=== PATIENT | male | born 1955 | race Caucasian/White ===

== ENCOUNTER 2019-03-06 22:36 | Observation (INO) ==
--- NOTE | 2019-03-06 23:29 | Emergency Department Note ---
Disposition Clinical Impression: Chest pain Qualifiers: Chest pain type: unspecified Qualified Code(s): R07.9 - Chest pain, unspecified Disposition: Admitted As Inpatient Condition: Fair Referrals: Layo Dumont [Primary Care Provider] - Forms: ED Satisfaction Letter Time of Disposition: 00:35 Chest Pain HPI - General Chief Complaint: ED Chest Pain Stated Complaint: CP/HEART PALPITATIONS/HIGH BP/INDIGESTION/[place] Time Seen by Provider: 03/06/19 23:04 Vital Signs Reviewed: Yes Nursing Notes Reviewed: Yes - History of Present Illness HPI Narrative: Patient to the ED with a chief complaint of chest pain. Patient states he woke up from sleep around 9:30. He felt a fullness in the left side of his jaw and ear. His ear was ringing. He felt pressure in his chest like indigestion. His heart rate went up. He felt a feeling of impending doom. He feels much better at this time. No cardiac history. Last stress test was in the early 1999. He does have a family history of heart disease and he has hypertension. Patient states he went to bed early tonight, but this is normal for him. He ate a normal dinner of a hamburger and some vegetables. Severity scale (1-10): 5 - Related Data Allergies Allergy/AdvReac Type Severity Reaction Status Date / Time No Known Allergies Allergy Unverified 12/12/15 09:26 All systems ED: reviewed and negative except as stated. Constitutional: Denies: fever Cardiovascular: Reports: chest pain, palpitations Respiratory: Denies: cough, dyspnea Chest Pain PMH - Past Medical History Medical history: Reports: hypertension, other (Alpha-1 antitrypsin deficiency) - Social History Smoking Status: Never smoker Father Family Medical History Unknown: Yes (Father with coronary disease.) Physical Exam Patient awake and alert sitting up in bed in no acute distress. His exam is unremarkable. - General Limitations: no limitations - Head Head exam: atraumatic, normocephalic, normal inspection - Eye Eye exam: Present: normal appearance - ENT ENT exam: normal exam, mucous membranes moist, TM's normal bilaterally - Neck Neck exam: Present: normal inspection - Chest Chest inspection: Present: normal inspection - Respiratory Respiratory exam: Present: normal lung sounds bilaterally. Absent: respiratory distress, wheezes - Cardiovascular Cardiovascular exam: Present: regular rate, normal rhythm - Abdominal Exam Abdominal exam: Present: soft, Non-Tender - Neurological Exam Neurological exam: Present: alert, oriented X3, CN II-XII intact - Psychiatric Psychiatric exam: Present: normal affect - Skin Skin exam: Present: warm, dry Course - Reevaluation(s) Reevaluation #1: Patient is in no acute distress. Cardiac workup. Time: 23:30 Reevaluation #2: The patient is feeling much better at this time. His troponin is negative. He does have some EKG changes including some inferior T-wave inversions. Heart score is 4. We will admit. Time: 00:34 - Consultations Consultation #1: Dr Montiel accepts Time: 00:49 Vital Signs Temperature 98.5 F 03/06/19 22:45 Pulse Rate 63 03/06/19 22:45 Respiratory Rate 16 03/06/19 22:45 Blood Pressure 175/103 03/06/19 22:45 O2 Sat by Pulse Oximetry 98 03/06/19 22:45 Temperature 98.5 F 03/06/19 23:26 Pulse Rate 63 03/06/19 23:26 Respiratory Rate 16 03/06/19 23:26 Blood Pressure 175/103 03/06/19 23:26 O2 Sat by Pulse Oximetry 98 03/06/19 23:26 Oxygen Delivery Oxygen Delivery Room Air Chest Pain - Lab Data Lab results reviewed: Yes I reviewed the patient's lab results. Result diagrams: 03/06/19 23:20 03/06/19 23:20 Lab Results 03/06/19 03/06/19 03/06/19 Range/Units 23:20 23:20 23:20 WBC 7.8 (4.3-11.1) K/mcL RBC 5.52 H (4.19-5.50) M/mcL Hgb 16.2 (12.9-16.9) g/dL Hct 49.1 (37.5-50.1) % MCV 88.9 (83.0-100.0) fL MCH 29.3 (28.0-33.3) pg MCHC 33.0 (31.6-35.5) g/dL RDW 12.7 (11.5-14.5) % Plt Count 233 (140-400) K/mcL MPV 10.1 (9.4-12.4) fL Immature Gran % 0.1 (0-4) % Seg Neutrophils % 72.0 % Lymphocytes % 17.1 % Monocytes % 5.9 % Eosinophils % 4.5 % Basophils % 0.4 % Neutrophils # 5.6 (1.6-8.9) K/mcL Lymphocytes # 1.3 (0.6-4.6) K/mcL Monocytes # 0.5 (0.0-1.3) K/mcL Eosinophils # 0.4 (0.0-0.6) K/mcL Basophils # 0.0 (0.0-0.2) K/mcL Sodium 138 (136-145) mEq/L Potassium 4.0 (3.5-5.1) mEq/L Chloride 102 (98-107) mEq/L Carbon Dioxide 30 H (23-29) mEq/L BUN 17 (8-23) mg/dL Creatinine 1.15 (0.70-1.30) mg/dL Est GFR ( Amer) > 60 (> 60) Est GFR (Non-Af Amer) > 60 (> 60) BUN/Creatinine Ratio 15 (6-26) Glucose 105 (70-105) mg/dL Calculated Osmolality 288 (280-300) Calcium 9.2 (8.6-10.3) mg/dL Troponin I < 0.03 (< 0.04) ng/mL B-Natriuretic Peptide 40 (Less than 100) pg/mL - Radiology Data Radiology results reviewed: Yes I reviewed the patient's radiology results. Chest X-Ray 03/06/19 23:17 IMPRESSION: No acute process. D/ / Kasandra Carlson MD / Kasandra Carlson MD Interpreting Provider: Kasandra Carlson MD - EKG Data EKG attestation: Yes I reviewed and interpreted this EKG. EKG results narrative: Normal sinus at 60. Normal QRS. Normal ST segments. T wave inversions in 3 and aVF. Normal axis. Heart Score - Score History: Moderately Suspicious EKG: Non Specific repolarisation Disturbance Age: 45-65 Risk Factors: 1-2 risk factors Troponin: Less than normal limit HEART Score Total: 4 Critical Care Time Critical Care Time: No
[2019-03-06 23:42] LABS: Basophils % 0.4 %; Eosinophils # 0.4 K/mcL (0.0-0.6); Eosinophils % 4.5 %; Hematocrit 49.1 % (37.5-50.1); Hemoglobin 16.2 g/dL (12.9-16.9); Immature Granulocytes % 0.1 % (0-4); Lymphocytes # 1.3 K/mcL (0.6-4.6); Lymphocytes % 17.1 %; Mean Corpuscular Hemoglobin 29.3 pg (28.0-33.3); Mean Corpuscular Volume 88.9 fL (83.0-100.0); Mean Platelet Volume 10.1 fL (9.4-12.4); Monocytes # 0.5 K/mcL (0.0-1.3); Monocytes % 5.9 %; Neutrophils # 5.6 K/mcL (1.6-8.9); Platelet Count 233 K/mcL (140-400); Red Blood Count 5.52 M/mcL (4.19-5.50); Red Cell Distribution Width 12.7 % (11.5-14.5); White Blood Count 7.8 K/mcL (4.3-11.1)
[2019-03-07 00:05] LABS: BUN/Creatinine Ratio 15 (6-26); Blood Urea Nitrogen 17 mg/dL (8-23); Calcium 9.2 mg/dL (8.6-10.3); Carbon Dioxide 30 mEq/L (23-29); Chloride 102 mEq/L (98-107); Glucose 105 mg/dL (70-105); Osmolality,Calculated 288 (280-300); Sodium 138 mEq/L (136-145); eGFR For African Americans > 60 (> 60); eGFR For Non-African Americans > 60 (> 60)
[2019-03-07 00:06] LABS: Troponin I < 0.03 ng/mL (< 0.04)
[2019-03-07] MEDS ORDERED: Aspirin 325 MG TABLET PO ONE (00:35)
[2019-03-07] MEDS ORDERED: Naloxone 0.4 MG/ML INJ IVP PRN (03:16)
[2019-03-07] MEDS ORDERED: Acetaminophen 325 MG TABLET PO PRN (03:16)
[2019-03-07] MEDS ORDERED: Ondansetron 4 MG/2 ML VIAL IVP PRN (03:16)
[2019-03-07] MEDS ORDERED: Nitroglycerin 0.4 MG TAB.SUBL SL PRN (03:18)
[2019-03-07] MEDS ORDERED: Morphine Sulfate 2 MG/ML SYRINGE IVP PRN (03:18)
[2019-03-07] MEDS ORDERED: 0.9 % Sodium Chloride 1,000 ML IVC SCH (03:30)
--- NOTE | 2019-03-07 05:20 | Internal Med History&Physical ---
Date of Encounter: 03/07/19 Time of Encounter: 02:35 Internal Medicine - H&P: HPI Chief complaint: chest pain Admitted From: Emergency Dept Plans for Post Hospital Care: Home History of present illness: Mr. Dela Cruz is a 64 year old male who awoke from sleep at 9:30 PM with sudden onset of chest pain, pressure, dyspnea, diaphoresis, and "sense of impending doom." He came to ER for evaluation where his pain had subsided over the timeframe. Roughly 2 hours had elapsed before he was seen by physician and initial symptom onset. He has slow resolution of chest pain. He did not require nitroglycerin or morphine in the ER. He received an aspirin and was stabilized. He was therefore admitted to hospitalist service. Upon my assessment of the patient, patient is back to baseline and feels chest pain-free. He and his confirmed above history. He felt that it was indigestion, but his convinced him to come to the ER. He is an avid bicyclist and rides his bicycle roughly 15-20 miles at least 3 times per week. He has no history of heart disease and only suffers from hypertension. He also has a history of alpha-1 antitrypsin deficiency, diagnosed recently. He has no respiratory or hepatic complications thus far. He is a nonsmoker and does not drink alcohol. His cardiac risk factors are low. However, given his presenting symptoms, he warrants further cardiac workup. His last stress test was roughly 15 years ago and that was negative. Past Med Surg Social Fam HX - Past Medical History Attestation: Yes The following information was validated with the patient. Source: patient, obtained from family Medical history: hypertension, other (alpha 1 antitrypsin deficiency) Additional medical history: BPH. chronic back pain Psychiatric history: no psych history - Past Surgical History Surgical History: sinus surgery, tonsillectomy Additional surgical history: B/L CT. L ankle. L hand. Back Surgery X 4. sleep apnea surgery - Social History Smoking Status: Never smoker Smokeless Tobacco Status: No Alcohol use: none Drug use: none Current living situation: Home, With Family Activity Level: Very active Recent Out of Country Travel Within the Last 8 Weeks: No - Family History Father History Unknown: Yes Internal Medicine - H&P: Meds Cialis 5 mg PO DAILY 03/07/19 [History] Meloxicam 15 mg PO DAILY 03/07/19 [History] Synthroid 75 mcg PO DAILY 03/07/19 [History] Tamsulosin HCl 0.4 mg PO DAILY 03/07/19 [History] amLODIPine 5 mg PO DAILY 03/07/19 [History] Allergy/AdvReac Type Severity Reaction Status Date / Time No Known Allergies Allergy Unverified 12/12/15 09:26 - Constitutional Constitutional: no chills, no fever(s), no night sweats - EENT Eyes: no blurry vision, no change in vision Ears: no ear pain, no tinnitus Nose, mouth and throat: no nasal congestion, no sinus pressure, no sore throat - Cardiovascular Cardiovascular ROS IM: chest pain, diaphoresis, dyspnea, no orthopnea, no paroxysmal nocturnal dyspnea, no syncope - Respiratory Respiratory: no cough, no chest congestion, no excessive phlegm production - Gastrointestinal Gastrointestinal: heartburn, nausea, no abdominal pain, no diarrhea, no hematemesis, no hematochezia, no melena, no vomiting - Genitourinary Genitourinary ROS male: no dysuria, no flank pain, no hematuria - Musculoskeletal Musculoskeletal ROS IM: no arthralgias, no back pain - Integumentary Integumentary IM: no rash, no jaundice - Neurological Neurological ROS: no dizziness, no focal weakness, no frequent falls, no headache(s) - Psychiatric Psychiatric: no anxiety, no depression - Endocrine Endocrine IM: no cold intolerance, no heat intolerance, no polydipsia, no polyphagia, no polyuria - Allergic/Immunologic Allergic/Immunologic: no wheezing, no GI upset with certain foods - Constitutional Vitals: Temp Pulse Resp BP Pulse Ox 97.5 F L 63 20 140/95 94 03/07/19 03:30 03/07/19 03:30 03/07/19 03:30 03/07/19 03:30 03/07/19 03:30 General appearance: Present: cooperative, A&O X 3, pleasant, no acute distress, answers questions appropriately Exam: chest pain free now - Head Head exam: Present: atraumatic, normal inspection - Eye Eye exam: Present: EOMI, PERRL. Absent: scleral icterus Pupils: Present: normal accommodation - ENT ENT exam: Present: mucous membranes dry, normal exam, normal oropharynx - Neck Neck exam general surgery: Present: full ROM, supple, trachea midline. Absent: lymphadenopathy, tenderness, nuchal rigidity, thyromegaly - Respiratory Respiratory exam: Present: CTAB. Absent: chest wall tenderness, rales, rhonchi, wheezes - Cardiovascular Cardiovascular exam: Present: RRR, +S1, +S2. Absent: diastolic murmur, systolic murmur - GI/Abdominal GI/Abdominal exam: Present: normal bowel sounds, soft. Absent: guarding, he patomegaly, mass, rebound, splenomegaly, tenderness - Extremities Exam Extremities exam: Present: full ROM, normal capillary refill, warm, radial pulses palpable and symmetrical. Absent: calf tenderness, pedal edema, tenderness - Back Exam Back exam: Present: normal inspection. Absent: CVA tenderness (L), CVA tenderness (R) - Neurological Exam Neurological exam: Present: alert, CN II-XII intact, oriented X3, no focal deficits, strengths equal and symetr throughout - Psychiatric Psychiatric exam: Present: normal affect, normal mood - Skin Skin exam: Present: dry, intact, warm Internal Med - H&P Results - Labs CBC & Chem 7: 03/06/19 23:20 03/06/19 23:20 Labs: Short CBC 03/06/19 Range/Units 23:20 WBC 7.8 (4.3-11.1) K/mcL Hgb 16.2 (12.9-16.9) g/dL Hct 49.1 (37.5-50.1) % Plt Count 233 (140-400) K/mcL Neutrophils # 5.6 (1.6-8.9) K/mcL BMP 03/06/19 23:20 Sodium 138 Potassium 4.0 Chloride 102 Carbon Dioxide 30 H BUN 17 Creatinine 1.15 Glucose 105 Calcium 9.2 Cardiac Enzymes 03/06/19 Range/Units 23:20 Troponin I < 0.03 (< 0.04) ng/mL - EKG Data -: EKG Interpreted by Myself EKG shows normal: sinus rhythm - EKG Data Prior EKG available for review: no EKG comments: 03/07/19 05:23 NSR; no acute ST-T changes - Impressions ITS Impressions Chest X-Ray 03/06/19 23:17 IMPRESSION: No acute process. D/ / Kasandra Carlson MD / Kasandra Carlson MD Interpreting Provider: Kasandra Carlson MD - Diagnostic Studies Chest x-ray Status: image reviewed by me (negative) - Assessment and Plan (1) Chest pain Current Visit: Yes Status: Acute Assessment and plan: 1. Will trend troponins, EKG's, and monitor on telemetry. 2. ECHO and stress test in AM if work-up remains negative. 3. Low suspicion of CAD but agree with work-up given presenting symptoms. 4. If above negative, will need GI work-up as outpatient. Qualifiers: Chest pain type: precordial pain Qualified Code(s): R07.2 - Precordial pain (2) Hypertension Current Visit: Yes Status: Chronic Assessment and plan: 1. Monitor BP and resume home meds as appropriate. Qualifiers: Hypertension type: essential hypertension Qualified Code(s): I10 - Essential (primary) hypertension (3) DVT prophylaxis Current Visit: Yes Status: Acute Assessment and plan: 1. Heparin SQ.
[2019-03-07 05:21] LABS: Prothrombin Time 11.5 Seconds (9.4-12.1)
[2019-03-07 05:23] LABS: Activated Partial Thrombo Time 29.6 Seconds (26.0-36.0)
[2019-03-07 05:37] LABS: Alanine Aminotransferase 22 Units/L (7-52); Albumin 4.3 g/dL (3.5-5.7); Albumin/Globulin Ratio 2.7 (1.1-2.2); Alkaline Phosphatase 43 Units/L (34-104); Aspartate Amino Transferase 20 Units/L (13-39); BUN/Creatinine Ratio 13 (6-26); Bilirubin,Total 0.5 mg/dL (0.3-1.0); Blood Urea Nitrogen 16 mg/dL (8-23); Calcium 8.9 mg/dL (8.6-10.3); Carbon Dioxide 30 mEq/L (23-29); Chloride 103 mEq/L (98-107); Chol/HDL Ratio 2.5 (0-4.9); Cholesterol 146 mg/dL (< 200); Globulin 1.6 g/dL (2.4-3.5); Glucose 95 mg/dL (70-105); HDL Cholesterol 58 mg/dL (40-59); LDL Cholesterol,Calculated 77 mg/dL (0-99); Magnesium 2.2 mg/dL (1.6-2.6); Osmolality,Calculated 291 (280-300); Potassium 4.2 mEq/L (3.5-5.1); Sodium 140 mEq/L (136-145); Total Protein 5.9 g/dL (6.4-8.9); Triglycerides 54 mg/dL (< 150); eGFR For African Americans > 60 (> 60); eGFR For Non-African Americans 57 (> 60)
[2019-03-07 05:47] LABS: Thyroid Stimulating Hormone 4.182 mcIU/mL (0.340-5.600)
--- NOTE | 2019-03-07 05:58 | Event Note ---
Date of Encounter: 03/07/19 Time of Encounter: 05:55 Patient's nurse MYLENE Young that patient's troponin initially was less than 0.03. Second troponin now 0.07. Stress test canceled. Patient to remain nothing by mouth. Cardiology consult ordered and Dr. Lyao Contreras alerted via Vocera of consult. A.M. team to f/u w/Cardiology and confirm consult as Vocera was not read.
[2019-03-07] MEDS ORDERED: *HR* Heparin 5,000 UNIT/ML VIAL SQ SCH (06:00)
[2019-03-07] MEDS ORDERED: aMILoride 5 MG TABLET PO SCH (09:00)
[2019-03-07] MEDS ORDERED: Aspirin 81 MG TAB.CHEW PO SCH (09:00)
--- NOTE | 2019-03-07 09:53 | Cardiology Consult Note ---
<Bakari Jeong - Last Filed: 03/07/19 10:24> Date of Encounter: 03/07/19 Time of Encounter: 09:52 Assessment and Plan (1) Chest pain Current Visit: Yes Status: Acute Woke from sleep at 9:30 PM with sudden onset of chest pain, pressure, dyspnea, diaphoresis, left ear pain, and "sense of impending doom." He came to ER for evaluation where his pain had subsided. BP noted to be 175/103. Pt just returned from a trip to [place], drove 2,600 miles in an 8 day span. Troponin negative, then 0.07. TTE to evaluate structure and function. Check DDimer given concern for PE--recent travel, sudden onset of dyspnea, diaphoresis. If DDimer is elevated, will proceed with CTA of chest. Will start heparin gtt given troponin and PE concern. If DDimer is negative, will then consider LHC given chest pain and elevated troponin. Further recs to follow. Will discuss and review with Dr. Cummins. Qualifiers: Chest pain type: precordial pain Qualified Code(s): R07.2 - Precordial pain (2) Elevated troponin Current Visit: Yes Status: Acute Troponin negative, then 0.07. Trend for total of 3. Suspect demand ischemia in s etting of accelerated hypertension with BP 175/103 on admission. Nondiagnostic for ACS. TTE to evaluate structure and function. Plan as above. Risk factors for CAD include HTN and family hx. If rules out for PE, will then discuss LHC. Discussion w patient/family: The assessment and plan as outlined above was discussed with the patient and/or family members who expressed understanding and agreement. All questions were answered. Thank you for involving us in the care of your patient. Please call with any questions. I will discuss all the above with Dr. Cummins and make changes as necessary. History of Present Illness Consult date: 03/07/19 Consult reason: elevated troponin, chest pain Chief complaint: chest pain, dyspnea History of present illness: Mr. Dela Cruz is a 64 year old male with PMH of HTN, alpha-1 antitrypsin deficiency, diagnosed recently that presented to ED for chest pain, shortness of breath and left ear pain. He woke from sleep at 9:30 PM with sudden onset of chest pain, pressure, dyspnea, diaphoresis, left ear pain, and "sense of impending doom." He came to ER for evaluation where his pain had subsided. He did not require nitroglycerin or morphine in the ER. He is an avid bicyclist and rides his bicycle roughly 15-20 miles at least 3 times per week. BP noted to be 175/103. Of note, pt just returned from a trip to [place], drove 2,600 miles in an 8 day span. Troponin negative, then 0.07. Cardiology consulted for further recs. Past Med Surg Social Fam HX - Past Medical History Medical history: hypertension, other (alpha 1 antitrypsin deficiency) Additional medical history: BPH. chronic back pain Psychiatric history: no psych history - Past Surgical History Surgical History: sinus surgery, tonsillectomy Additional surgical history: B/L CT. L ankle. L hand. Back Surgery X 4. sleep apnea surgery - Social History Smoking Status: Never smoker Smokeless Tobacco Status: No Alcohol use: none Drug use: none - Family History Father History Unknown: Yes Medications and Allergies Amlodipine Besylate 5 mg PO DAILY 03/07/19 [History] Levothyroxine [Synthroid] 75 mcg PO QAM 03/07/19 [History] Meloxicam 15 mg PO DAILY 03/07/19 [History] Tadalafil [Cialis] 5 mg PO DAILY 03/07/19 [History] Testosterone Cypionate [Depo-Testosterone] 220 mg IM SA 03/07/19 [History] Allergy/AdvReac Type Severity Reaction Status Date / Time No Known Allergies Allergy Unverified 12/12/15 09:26 All Systems Review: The remainder of the systems were reviewed and are negative - EENT Ears: left: ear pain - Cardiovascular Cardiovascular: as per HPI, chest pain at rest, diaphoresis, dyspnea at rest, radiating jaw, neck or arm pain - Respiratory Respiratory: dyspnea Physical Examination Vital Signs, Last 4 Hours Temp Pulse Resp BP Pulse Ox 03/07/19 08:11 95 03/07/19 06:45 97.7 F 68 18 136/87 95 Vital Signs Temp Pulse Resp BP Pulse Ox 03/07/19 08:11 95 03/07/19 06:45 97.7 F 68 18 136/87 95 03/07/19 03:30 97.5 F L 63 20 140/95 94 03/06/19 23:26 98.5 F 63 16 175/103 98 03/06/19 22:45 98.5 F 63 16 175/103 98 Intake and Output 03/06/19 03/07/19 03/07/19 23:59 07:59 15:59 Other: Weight 83.915 kg 83.2 kg Patient Weight 03/07/19 23:59 Weight 83.2 kg General: Conversant, No Apparent Distress HEENT: Atraumatic, Normocephaly, Mucus Membranes Moist Neck: No JVD, Normal carotid pulses Cardiac: Reg Rate and Rhythm, Normal S1 and S2, No Murmur Lungs: Normal Breath Sounds, No Wheeze, Rales, Rhonchi Neuro: Alert and responsive, No focal deficits noted Abdomen: Soft, Non-Tender Skin: No rashes noted on visualized skin Musculoskeletal: No Chest Wall Tenderness Extremities: No Clubbing, No Cyanosis, No Edema, Normal Pulses Results 03/06/19 23:20 03/07/19 05:00 Lab Results 03/06/19 03/06/19 03/06/19 23:20 23:20 23:20 WBC 7.8 Hgb 16.2 Hct 49.1 Plt Count 233 INR APTT Sodium 138 Potassium 4.0 Chloride 102 Carbon Dioxide 30 H BUN 17 Creatinine 1.15 Glucose 105 Calcium 9.2 Magnesium Total Bilirubin AST ALT Alkaline Phosphatase Troponin I < 0.03 B-Natriuretic Peptide 40 TSH 03/07/19 03/07/19 03/07/19 05:00 05:00 05:00 WBC Hgb Hct Plt Count INR 1.0 APTT 29.6 Sodium 140 Potassium 4.2 Chloride 103 Carbon Dioxide 30 H BUN 16 Creatinine 1.28 Glucose 95 Calcium 8.9 Magnesium 2.2 Total Bilirubin 0.5 AST 20 ALT 22 Alkaline Phosphatase 43 Troponin I 0.07 H* B-Natriuretic Peptide TSH 4.182 Short CBC 03/06/19 Range/Units 23:20 WBC 7.8 (4.3-11.1) K/mcL Hgb 16.2 (12.9-16.9) g/dL Hct 49.1 (37.5-50.1) % Plt Count 233 (140-400) K/mcL Neutrophils # 5.6 (1.6-8.9) K/mcL BMP 03/07/19 03/06/19 Range/Units 05:00 23:20 Sodium 140 138 (136-145) mEq/L Potassium 4.2 4.0 (3.5-5.1) mEq/L Chloride 103 102 (98-107) mEq/L Carbon Dioxide 30 H 30 H (23-29) mEq/L BUN 16 17 (8-23) mg/dL Creatinine 1.28 1.15 (0.70-1.30) mg/dL Glucose 95 105 (70-105) mg/dL Calcium 8.9 9.2 (8.6-10.3) mg/dL Cardiac Enzymes 03/07/19 03/06/19 Range/Units 05:00 23:20 Troponin I 0.07 H* < 0.03 (< 0.04) ng/mL Liver Function 03/07/19 Range/Units 05:00 Total Bilirubin 0.5 (0.3-1.0) mg/dL AST 20 (13-39) Units/L ALT 22 (7-52) Units/L Alkaline Phosphatase 43 (34-104) Units/L Albumin 4.3 (3.5-5.7) g/dL Impressions Chest X-Ray 03/06/19 23:17 IMPRESSION: No acute process. D/ / Kasandra Carlson MD / Kasandra Carlson MD Interpreting Provider: Kasandra Carlson MD Active Medications Acetaminophen (Tylenol) 650 mg PO Q6H PRN PRN Reason: Mild Pain/Fever Stop: 09/06/19 03:17 Aspirin (Aspirin) 81 mg PO DAILY [facility] Stop: 09/06/19 09:01 Last Admin: 03/07/19 08:02 Dose: 81 mg Documented by: Heparin Sodium (Porcine) (Heparin) 5,000 unit SQ Q12HCO [facility]; Protocol Stop: 09/06/19 06:01 Last Admin: 03/07/19 05:16 Dose: 5,000 unit Documented by: Sodium Chloride (0.9 % Sodium Chloride) 1,000 mls @ 75 mls/hr IVC .[id number] [facility] Stop: 03/08/19 06:09 Last Admin: 03/07/19 04:23 Dose: 75 mls/hr Documented by: Levothyroxine Sodium (Synthroid) 75 mcg PO 0630 KIRSTEN Stop: 09/06/19 06:31 Last Admin: 03/07/19 05:16 Dose: 75 mcg Documented by: Morphine Sulfate (Morphine) 2 mg IVP Q4H PRN; Protocol PRN Reason: Chest Pain Stop: 09/06/19 03:19 Naloxone HCl (Narcan) 0.4 mg IVP Q2MPRN PRN PRN Reason: SEE COMMENTS Stop: 09/06/19 03:17 Nitroglycerin (Nitroglycerin) 0.4 mg SL Q5MPRN PRN PRN Reason: Chest Pain Stop: 09/06/19 03:19 Ondansetron HCl (Zofran) 4 mg IVP Q8H PRN PRN Reason: Nausea And Vomiting Stop: 09/06/19 03:17 Tamsulosin HCl (Flomax) 0.4 mg PO DAILY [facility] Stop: 09/06/19 09:01 Last Admin: 03/07/19 08:02 Dose: 0.4 mg Documented by: - Imaging and Cardiology Chest Xray: report reviewed Echo: pending - EKG Interpretation EKG results cardiology: personally reviewed (SR), other (12 hr tele AVG HR 63, S R, 4 beat NSVT) Consult Discharge Plan - Plan Referrals: Layo Dumont [Primary Care Provider] - <Maria GWednesday A - Last Filed: 03/07/19 14:09> Date of Encounter: 03/07/19 - Attending Attestation I have personally performed a face to face evaluation on this patient. I have reviewed and agree with the documented findings and care plan as documented by the DIRECTOR NETWORK DEVELOPMENT. History and Exam by me shows: 64-year-old pleasant gentleman with history of hypertension, family history of premature coronary artery disease in first-degree relatives, presenting with temporal pain and throbbing headache over the past week, and also a mild chest dull ache at rest. AAOX3 in NAD at the bedside Hemodynamically stable Cardiopulmonary exam revealed S1, S2, no murmur; clear lungs Rhythm reviewed - sinus rhythm, no acute ST T changes Echo pending Impression/plan: 1. Atypical chest pain- obtain echo, pharmacological nuclear level exercise stress test 2. Throbbing headache- check ESR for possible temporal arteritis 3. Family history of premature coronary artery disease. If stress test is negative, patient would benefit from calcium scoring evaluation for risk stratification of CHD Further recommendations to follow. Thanks for the consult, please call with questions. Farhat Cummins MD [facility] Assessment and Plan Discussion w patient/family: The assessment and plan as outlined above was discussed with the patient and/or family members who expressed understanding and agreement. All questions were answered. Thank you for involving us in the care of your patient. Please call with any questions. History of Present Illness History of present illness: Mr. Dela Cruz is a 64 year old male All Systems Review: The remainder of the systems were reviewed and are negative Results 03/07/19 10:28 03/07/19 05:00 Lab Results 03/06/19 03/06/19 03/06/19 23:20 23:20 23:20 WBC 7.8 Hgb 16.2 Hct 49.1 Plt Count 233 INR APTT D-Dimer Sodium 138 Potassium 4.0 Chloride 102 Carbon Dioxide 30 H BUN 17 Creatinine 1.15 Glucose 105 Calcium 9.2 Magnesium Total Bilirubin AST ALT Alkaline Phosphatase Troponin I < 0.03 B-Natriuretic Peptide 40 TSH 03/07/19 03/07/19 03/07/19 05:00 05:00 05:00 WBC Hgb Hct Plt Count INR 1.0 APTT 29.6 D-Dimer Sodium 140 Potassium 4.2 Chloride 103 Carbon Dioxide 30 H BUN 16 Creatinine 1.28 Glucose 95 Calcium 8.9 Magnesium 2.2 Total Bilirubin 0.5 AST 20 ALT 22 Alkaline Phosphatase 43 Troponin I 0.07 H* B-Natriuretic Peptide TSH 4.182 03/07/19 03/07/19 03/07/19 10:28 10:28 10:28 WBC 5.7 Hgb 16.6 Hct 49.3 Plt Count 222 INR APTT D-Dimer 409 Sodium Potassium Chloride Carbon Dioxide BUN Creatinine Glucose Calcium Magnesium Total Bilirubin AST ALT Alkaline Phosphatase Troponin I 0.07 H* B-Natriuretic Peptide TSH
--- NOTE | 2019-03-07 10:03 | Electrocardiograph Report ---
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
[2019-03-07] MEDS ORDERED: *HR* Heparin 5,000 UNIT/ML VIAL IVP PRN ×2 (10:18)
[2019-03-07] MEDS ORDERED: *HR* Heparin 5,000 UNIT/ML VIAL IVP ONE (10:18)
--- NOTE | 2019-03-07 10:28 | Electrocardiograph Report ---
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
[2019-03-07] MEDS ORDERED: Heparin 25,000 UNIT/250 ML D5W 25,000 UNIT/250 ML IV.SOLN IVC SCH (10:30)
[2019-03-07 10:47] LABS: Hematocrit 49.3 % (37.5-50.1); Hemoglobin 16.6 g/dL (12.9-16.9); Mean Corpuscular HGB Conc 33.7 g/dL (31.6-35.5); Mean Corpuscular Hemoglobin 29.2 pg (28.0-33.3); Mean Corpuscular Volume 86.8 fL (83.0-100.0); Platelet Count 222 K/mcL (140-400); Red Blood Count 5.68 M/mcL (4.19-5.50); White Blood Count 5.7 K/mcL (4.3-11.1)
[2019-03-07] MEDS ORDERED: Regadenoson 0.4 MG/5 ML SYRINGE IVP ONE (12:50)
[2019-03-07 14:54] VITALS: BP 138/86
--- NOTE | 2019-03-07 16:07 | Event Note ---
Date of Encounter: 03/07/19 Time of Encounter: 16:00 - Cardiology Event Note Nuclear stress test negative for ischemia. ESR normal. Discussed with Dr. Cummins; no further inpatient recommendations, Cardiology will sign-off. Will coordinate outpatient follow-up with Dr. Cummins.
--- NOTE | 2019-03-07 16:16 | Discharge Summary ---
- NOTES TO OUTPATIENT PROVIDER Notes to Outpatient Provider: Follow up with Cardiology as outpatient Date of Encounter: 03/07/19 Time of Encounter: 13:00 - Discharge Diagnosis (1) Chest pain Priority: Primary Status: Acute Qualifiers: Chest pain type: precordial pain Qualified Code(s): R07.2 - Precordial pain (2) Hypertension Priority: Secondary Status: Chronic Qualifiers: Hypertension type: essential hypertension Qualified Code(s): I10 - Essential (primary) hypertension (3) Elevated troponin Priority: Secondary Status: Acute (4) DVT prophylaxis Priority: Secondary Status: Acute Hospital course: Mr. Dela Cruz is a 64 year old male with history of hypertension and family history of CAD who presented to the ED with sudden onset of chest pain. First trop -ve but 2nd troponin came back minimally elevated at 0.07 hence pt was briefly placed on hep gtt. However, 3rd troponin again came back minimally elevated at 0.07 hence heparin was discontinued and pt underwent low level stress. The study was negative for ischemia and infarct and echocardiogram also showed preserved EF. After discussing with cardiology, decision was made to discharge the patient and follow-up outpatient for calcium scoring and CHD risk assessment. Discharge discussed with: patient, nurse, it security consultant - Time Spent with Patient Total time spent providing and/or coordinating discharge services: 27 mins - Discharge Medications Prescriptions: Continued Levothyroxine [Synthroid] 75 mcg PO QAM Testosterone Cypionate [Depo-Testosterone] 220 mg IM SA Tadalafil [Cialis] 5 mg PO DAILY Amlodipine Besylate 5 mg PO DAILY Meloxicam 15 mg PO DAILY Home Medications: Amlodipine Besylate 5 mg PO DAILY 03/07/19 [History] Levothyroxine [Synthroid] 75 mcg PO QAM 03/07/19 [History] Meloxicam 15 mg PO DAILY 03/07/19 [History] Tadalafil [Cialis] 5 mg PO DAILY 03/07/19 [History] Testosterone Cypionate [Depo-Testosterone] 220 mg IM SA 03/07/19 [History] Allergies/Adverse Reactions: Allergy/AdvReac Type Severity Reaction Status Date / Time No Known Allergies Allergy Unverified 12/12/15 09:26 Date of admission: 03/07/19 01:05 Primary care physician: Layo Dumont Consults: 08/20/19 05:52 Consult to Cardiology [CONS] Routine Comment: Consulting Provider: Cardiology Nancy Reason for Consult: Patient admitted for CP and initial troponin was <0.03. Second is now 0.07. Asymptomatic at this time. Stress test cancelled. Call Completed: Yes - Constitutional Vitals: Temp Pulse Resp BP Pulse Ox 97.6 F 73 16 138/86 96 03/07/19 14:54 03/07/19 14:54 03/07/19 10:02 03/07/19 14:54 03/07/19 14:54 General appearance: Present: cooperative, A&O X 3, pleasant, no acute distress, answers questions appropriately Exam: General: Alert and oriented, not in acute distress. Cardiovascular:Normal S1 & S2, No JVD. Pulse regular. No chest wall tenderness Lungs: clear to auscultation, no wheezes/rales Abdomen:Soft, non-tender, no rigidity. Extremities:No deformity or swelling Neurological:Normal cognition and motor skills. Non-focal - Patient Status Disposition: Home, Self-Care Condition: Fair Functional capacity at discharge: independent ambulation Overall status at discharge: patient is progressing back to baseline - Discharge Instructions Instructions: Chest Pain (DC), Chronic Hypertension (DC) Follow Up With: Layo Dumont [Primary Care Provider] - Farhat Cummins MD [Non-Partnered Physician] - - Diet and Activity Activity: resume usual activities as tolerated Diet: regular diet
[2019-03-08] MEDS ORDERED: amLODIPine 5 MG TABLET PO SCH (09:00)
== END 2019-03-07 17:04 | disposition home or self-care (01) ==
LOC: EMEROOARM 22:36 → 3ANU 22:36 → SUATTDRO 03-07 01:05 → 3ANU 03-07 02:15
PROVIDERS: ADMIT Internal Medicine Nephrology; ATTEND Internal Medicine